=== PATIENT | male | born 1985 | race Caucasian/White ===

== ENCOUNTER 2017-03-22 11:07 | Emergency (ER) | payer MEDICAID ==
[2017-03-22 11:55] VITALS: BP 124/77
--- NOTE | 2017-03-22 12:45 | UC ---
Skin Complaint HPI - HPI Summary HPI Summary: 1. skin rash x 2 weeks , located on his right flank area , neck , back and upper arm, no new soap, shampoo , detergent , food the rash is burning and itchy 2. right testicular pain and swelling x 2 months , no known injury, no redness, no fever, no chills, no dysuria , - History of Current Complaint Chief Complaint: UCSkin Time Seen by Provider: 03/22/17 11:57 Stated Complaint: SKIN COMPLAINT,PERSONAL Hx Obtained From: Patient Onset/Duration: Gradual Onset, Lasting Weeks - 2, Still Present Timing: Constant Onset Severity: Moderate Current Severity: Moderate Location: Other - right flank , right upper arm, back , chest Character: Pruritus, Pain, Hives, Redness Aggravating Factor(s): Touch Alleviating Factor(s): Nothing Associated Signs & Symptoms: Positive: Rash. Negative: Nausea, Vomiting, Numbness, Thirst, Diaphoresis, Weakness, Pallor, Shivering, Difficulty Breathing , Fever, Chills, Cough, Wheezing, Chest Pain, Hoarseness, Throat Tightening - Allergy/Home Medications Allergies/Adverse Reactions: Allergies Allergy/AdvReac Type Severity Reaction Status Date / Time No Known Allergies Allergy Verified 03/22/17 11:52 Review of Systems Constitutional: Negative Skin: Rash Eyes: Negative ENT: Negative Respiratory: Negative Cardiovascular: Negative Gastrointestinal: Negative Motor: Negative Is Patient Immunocompromised?: No All Other Systems Reviewed And Are Negative: Yes PMH/Surg Hx/FS Hx/Imm Hx Previously Healthy: Yes - Surgical History Surgical History: None - Family History Known Family History: Negative: Diabetes - Social History Alcohol Use: None Substance Use Type: Marijuana Substance Use Comment - Amount & Last Used: Daily Smoking Status (MU): Heavy Every Day Tobacco Smoker Type: Cigarettes Amount Used/How Often: 1 1/2 - 2 PPD Length of Time of Smoking/Using Tobacco: Since Age 11 Household Exposure Type: Cigarettes - Immunization History Most Recent Influenza Vaccination: Not the Season Physical Exam Triage Information Reviewed: Yes Appearance: Well-Appearing, No Pain Distress, Well-Nourished Vital Signs: Initial Vital Signs Temp 97.8 F 03/22/17 11:49 Pulse 88 03/22/17 11:49 Resp 16 03/22/17 11:49 BP 124/77 03/22/17 11:49 Pulse Ox 100 03/22/17 11:49 Vital Signs Reviewed: Yes Eyes: Positive: Conjunctiva Clear ENT: Positive: Normal ENT inspection, Hearing grossly normal, Pharynx normal Neck exam: Normal Neck: Positive: Supple, Nontender, No Lymphadenopathy Respiratory: Positive: Chest non-tender, Lungs clear, Normal breath sounds, No respiratory distress, No accessory muscle use Cardiovascular: Positive: RRR, No Murmur, Pulses Normal Abdomen Description: Positive: Nontender, Soft. Negative: CVA Tenderness (R), CVA Tenderness (L), Distended, Guarding Bowel Sounds: Positive: Present Musculoskeletal Exam: Normal Musculoskeletal: Positive: Strength Intact, ROM Intact, No Edema Skin: Positive: rashes - macular rash on righ flank, right upper back, right upper arm UC Physical Exam Vital Signs On Initial Exam: Initial Vitals Temp Pulse Resp BP Pulse Ox 97.8 F 88 16 124/77 100 03/22/17 11:49 03/22/17 11:49 03/22/17 11:49 03/22/17 11:49 03/22/17 11:49 - Genitalia Exam Male Genitalia: Circumcised Male Genitalia Cont.: Right: Testicles Tender, Bilateral: Testicles Descended Course/Dx - Course Course Of Treatment: pt. would like to follow up with his own pcp for the evaluation of right testicular pain and swelling - Diagnoses Provider Diagnoses: contact dermatitis. right testicular pain Discharge - Discharge Plan Condition: Stable Disposition: HOME Prescriptions: predniSONE TAB* [Deltasone TAB*] 40 mg PO DAILY #10 tab Triamcinolone 0.1% CREAM (NF) [Kenalog 0.1% Cream (NF)] 1 applic TOPICAL BID # 60 gm Patient Education Materials: Contact Dermatitis (ED), Testicle Pain (ED) Referrals: Akilah Oconnor PA [Primary Care Provider] - 7 Days Additional Instructions: please follow up with your pcp for the eval of testicular pain you would need a testicular US
== END 2017-03-22 12:47 | disposition home or self-care (01) ==
LOC: UCCORT 11:07
DX: L25.9 Unspecified contact dermatitis, unspecified cause (principal); N50.811 Right testicular pain; Z11.4 Encounter for screening for human immunodeficiency virus [HIV]; F12.90 Cannabis use, unspecified, uncomplicated; F17.210 Nicotine dependence, cigarettes, uncomplicated
CPT/HCPCS: 36415; 86703; 99212; G0463

== ENCOUNTER 2018-10-27 09:39 | Emergency (ER) | payer OTHER ==
[2018-10-27 10:06] VITALS: BP 95/68
--- NOTE | 2018-10-27 10:37 | UC ---
Skin Complaint HPI - HPI Summary HPI Summary: 33 year old male with no PMH, no DM, no skin conditions presents with abdominal rash. Patient states he noted ~ 3 weeks ago after wearing a new MEADE belt buckle. NOtes increased redness, open wounds/ sores. Patient was told by friends to put desitin on them, but did not noted any improvement & has become more painful and irritated with heat, pants rubbing on area. no fevers, no abdominal pains. - History of Current Complaint Chief Complaint: UCSkin Time Seen by Provider: 10/27/18 10:25 Stated Complaint: SKIN CONCERN Hx Obtained From: Patient Onset/Duration: Sudden Onset, Lasting Weeks Skin Exposure Onset/Duration: Weeks Ago Timing: Constant Onset Severity: Mild Current Severity: Moderate Pain Intensity: 7 Pain Scale Used: 0-10 Numeric Location: Discrete - middle abdomen Aggravating Factor(s): Clothing Associated Signs & Symptoms: Positive: Rash, Drainage, Tenderness, Red Streaks - Allergy/Home Medications Allergies/Adverse Reactions: Allergies Allergy/AdvReac Type Severity Reaction Status Date / Time No Known Allergies Allergy Verified 10/27/18 10:06 PMH/Surg Hx/FS Hx/Imm Hx Previously Healthy: Yes - Surgical History Surgical History: None - Family History Known Family History: Negative: Diabetes - Social History Alcohol Use: None Substance Use Type: Marijuana Substance Use Comment - Amount & Last Used: Daily Smoking Status (MU): Heavy Every Day Tobacco Smoker Type: Cigarettes Amount Used/How Often: 1 1/2 - 2 PPD Length of Time of Smoking/Using Tobacco: Since Age 11 Household Exposure Type: Cigarettes - Immunization History Most Recent Influenza Vaccination: Not the 2016/2017 Season Review of Systems All Other Systems Reviewed And Are Negative: Yes Skin: Positive: Rash Gastrointestinal: Positive: Abdominal Pain Is Patient Immunocompromised?: No Physical Exam Triage Information Reviewed: Yes Appearance: Well-Appearing, No Pain Distress, Well-Nourished Vital Signs: Initial Vital Signs Temp 97.7 F 10/27/18 09:59 Pulse 74 10/27/18 09:59 Resp 16 10/27/18 09:59 BP 95/68 10/27/18 09:59 Pulse Ox 100 10/27/18 09:59 Vital Signs Reviewed: Yes Eyes: Positive: Conjunctiva Clear ENT: Positive: Hearing grossly normal Abdomen Description: Positive: Nontender, No Organomegaly, Soft. Negative: Distended, Guarding Neurological Exam: Normal Psychological Exam: Normal Skin: Positive: Other - ~ 6 small circular areas appearing to be ruptured vesicles without spread, difinte borders, mild TTP, no drainage noted, no erythema streaking, no LAD, located directly above pant button. not raised. Course/Dx - Course Course Of Treatment: PRobably contact dermatitis with possible secondary bacterial infection, STeroid ointment with oral abx given x 5 days, follow up within 2-3 days if no imprvement - Diagnoses Provider Diagnosis: Contact dermatitis Discharge - Sign-Out/Discharge Documenting (check all that apply): Patient Departure All imaging exams completed and their final reports reviewed: No Studies - Discharge Plan Condition: Good Disposition: HOME Prescriptions: Cephalexin CAP* [Keflex CAP*] 500 mg PO TID #15 cap Triamcinolone 0.5% OINT * 1 applic TOPICAL BID #1 tube Patient Education Materials: Triamcinolone (On the skin), Contact Dermatitis ( ED) Referrals: Akilah Oconnor PA [Primary Care Provider] - Additional Instructions: - APply thin layer of steroid ointment to redness twice daily. Do not use for longer than 7 days. stop when symptoms resolved for 24 hours - Continue antibiotics for 5 days to prevent bacterial infection - FOllow up if no improvement within 2-3 days or return with increased pain, worsening, increased redness, fever, chills - Billing Disposition and Condition Condition: GOOD Disposition: Home
== END 2018-10-27 10:39 | disposition home or self-care (01) ==
LOC: UCCORT 09:39
DX: L25.9 Unspecified contact dermatitis, unspecified cause (principal)
CPT/HCPCS: 99212; G0463